=== PATIENT | female | born 1940 | race Caucasian/White ===

== ENCOUNTER 2017-01-10 14:25 | Day surgery (SDC) | payer MEDICARE, BC ==
--- NOTE | ~2017-01-10 | OP ---
Record Of Operation [facility] [address] [place]. [address] NAME: CAMELIA VARGAS : 42 STATUS : [facility]#: [id number] AGE: 76 ADM/REG DATE : 01/10/17 MR#: [id number] REPORT SERV DATE: 01/20/17 DICTATED BY: SIGRID SEO DATE: 01/20/17 REPORT STATUS : Draft TRANSCRIBED BY: MODRodrigo DATE: 01/20/17 DATE OF PROCEDURE: 01/10/2017 PREOPERATIVE DIAGNOSES: 1. 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 2. Left hallux valgus. 3. 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 4. Left 3rd severe hammertoe contracture. 5. Left 4th severe hammertoe contracture. 6. Left 5th hammertoe contracture. 7. Left elongated 2nd metatarsal. POSTOPERATIVE DIAGNOSES: 1. 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 2. Left hallux valgus. 3. 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 4. Left 3rd severe hammertoe contracture. 5. Left 4th severe hammertoe contracture. 6. Left 5th hammertoe contracture. 7. Left elongated 2nd metatarsal. PROCEDURES: 1. Left 1st metatarsophalangeal arthrodesis with internal fixation. 2. Left 2nd metatarsophalangeal joint extensor tenotomy and capsulotomy. 3. Left 3rd metatarsophalangeal joint extensor tenotomy and capsulotomy. 4. Left 4th metatarsophalangeal joint extensor tenotomy and capsulotomy. 5. Left 5th metatarsophalangeal joint extensor tenotomy and capsulotomy. 6. Left 2nd PIPJ arthrodesis with internal fixation. 7. Left 3rd PIPJ arthrodesis with internal fixation. 8. Left 4th PIPJ arthrodesis with internal fixation. 9. Left 5th PIPJ arthroplasty. 10.Left 2nd metatarsal Courtney osteotomy with internal fixation. SURGEON: Cj Seo, D.P.M. ANESTHESIA: General and local anesthetic. ESTIMATED BLOOD LOSS: Minimal. COMPLICATIONS: None. INJECTABLES: Approximately 40 mL of a 1:1 mixture of 1% Xylocaine plain and 0.5% Marcaine plain. MATERIALS: Include Arthrex headless hammertoe screw fixation, 1st metatarsophalangeal arthrodesis plate from Arthrex, 3-0 and 4-0 Vicryl, 4-0 nylon. Record Of Operation [facility] [address] [place]. [address] NAME: CAMELIA VARGAS : 42 STATUS : [facility]#: [id number] AGE: 76 ADM/REG DATE : 01/10/17 MR#: [id number] REPORT SERV DATE: 01/20/17 DICTATED BY: SIGRID SEO DATE: 01/20/17 REPORT STATUS : Draft TRANSCRIBED BY: FRANSICO DATE: 01/20/17 PROCEDURE IN DETAIL: Under mild sedation, the patient was brought to the operating room and placed on the operating table in supine position. Following general anesthesia, local anesthesia obtained about the patient's left foot. Left foot, ankle, and lower leg were scrubbed, prepped, and draped in usual aseptic manner. Attention was directed to the procedure. Procedure #1 is left 1st metatarsophalangeal joint arthrodesis with internal fixation. Attention was directed to the dorsal aspect of the patient's left 1st metatarsophalangeal joint where a linear incision was made medial and parallel to the extensor tendon involving the contour of the deformity of the left 1st metatarsophalangeal joint. The incision was deepened to subcutaneous tissue with care being taken to identify and retract all vital neurovascular structures. All bleeders were cauterized and ligated as necessary. Linear capsular incision was made medial and parallel to the extensor tendon involving the contour of the deformity of the 1st metatarsophalangeal joint. Capsular tissues were reflected medial and laterally exposing the 1st metatarsophalangeal joint. At this time, the head of the metatarsal and base of the proximal phalanx was reamed of all remaining cartilaginous tissue. It should be noted that soft bone was encountered. Subchondral plate was removed. Fenestration ensued with subchondral bleeding. The 1st metatarsal was placed in a rectus position as well as the great toe. Temporary plate fixation was placed to the dorsal aspect of the 1st metatarsophalangeal joint. Next, interfrag screw was placed across the metatarsophalangeal joint with excellent compression noted. Locking and nonlocking screw fixation was placed throughout the dorsal plating system. Excellent position was noted. Copious irrigation ensued. The capsular and deep fascia tissue reapproximated and coapted utilizing 3-0 Vicryl. Attention was directed to the next procedure. Next procedure is left 2nd metatarsophalangeal joint extensor tenotomy and capsulotomy. Attention was directed to the dorsal aspect of the 2nd metatarsophalangeal joint where a curvilinear incision was made overlying the 2nd metatarsophalangeal joint. Blunt dissection was continued down to the level of the extensor dhillon apparatus. Extensor dhillon release was performed. Z-lengthening of the extensor tendon and capsulotomy ensued. The dorsal contracture was noted to be reduced. Attention was directed to the next procedure. The next procedure is left 3rd metatarsophalangeal joint extensor tenotomy and capsulotomy. Attention was directed to the dorsal aspect of the 3rd metatarsophalangeal joint where a curvilinear incision was made overlying the 3rd metatarsophalangeal joint. Blunt dissection was continued down to the level of the extensor dhillon apparatus. Extensor dhillon release was performed. Z-lengthening of the extensor tendon and capsulotomy ensued. The dorsal contracture was noted to be reduced. Attention was directed to the next procedure. The next procedure is left 4th metatarsophalangeal joint extensor tenotomy and capsulotomy. Attention was directed to the dorsal aspect of the 4th metatarsophalangeal joint where a curvilinear incision was made overlying the 4th metatarsophalangeal joint. Blunt dissection was continued down to the level of the extensor dhillon apparatus. Extensor dhillon release was performed. Z-lengthening of the extensor tendon and capsulotomy ensued. The dorsal contracture was noted to be reduced. Attention was directed to the next procedure. Record Of Operation [facility] [address] [facility] [place]. [address] NAME: CAMELIA VARGAS : 42 STATUS : [facility] PAT#: [id number] AGE: 76 ADM/REG DATE : 01/10/17 MR#: [id number] REPORT SERV DATE: 01/20/17 DICTATED BY: SIGRID SEO DATE: 01/20/17 REPORT STATUS : Draft TRANSCRIBED BY: FRANSICO DATE: 01/20/17 The next procedure is left 5th second metatarsophalangeal joint tenotomy and capsulotomy. Attention was directed to the dorsal aspect of the 5th metatarsophalangeal joint where a curvilinear incision was made overlying the 5th metatarsophalangeal joint. Blunt dissection was continued down to the level of the extensor dhillon apparatus. Extensor dhillon release was performed. Z-lengthening of the extensor tendon and capsulotomy ensued. The dorsal contracture was noted to be reduced. Attention was directed to the next procedure. The next procedure is left 2nd PIPJ arthrodesis with internal fixation. Attention was directed to the dorsal aspect of the 2nd digit where the severe hammertoe contracture was appreciated. A 2 cm similar elliptical incision was made overlying the dorsal PIPJ. Ellipse of the skin was removed in toto. Transverse tenotomy and capsulotomy ensued to the dorsal PIPJ. The cartilaginous tissues resected from the head of the proximal phalanx to the base of the intermediate phalanx. K-wire was placed into the intermediate phalanx exiting percutaneously at the tip of the digit and was retrograded into the proximal phalanx. At this time, a headless compression screw from Arthrex was placed overlying the guidewire under fluoroscopy guidance. Excellent positioning and stabilization was noted. Excellent compression at the PIPJ was appreciated. Guidewire was removed. Attention was directed to the next procedure. The next procedure is left 3rd PIPJ arthrodesis with internal fixation. Attention was directed to the dorsal aspect of the 3rd digit where the severe hammertoe contracture was appreciated. A 2 cm similar elliptical incision was made overlying the dorsal PIPJ. Ellipse of the skin was removed in toto. Transverse tenotomy and capsulotomy ensued to the dorsal PIPJ. The cartilaginous tissues resected from the head of the proximal phalanx to the base of the intermediate phalanx. K-wire was placed into the intermediate phalanx exiting percutaneously at the tip of the digit and was retrograded into the proximal phalanx. At this time, a headless compression screw from Arthrex was placed overlying the guidewire under fluoroscopy guidance. Excellent positioning and stabilization was noted. Excellent compression at the PIPJ was appreciated. Guidewire was removed. Attention was directed to the next procedure. The next procedure is left 4th PIPJ arthrodesis with internal fixation. Attention was directed to the dorsal aspect of the 4th digit where the severe hammertoe contracture was appreciated. A 2 cm similar elliptical incision was made overlying the dorsal PIPJ. Ellipse of the skin was removed in toto. Transverse tenotomy and capsulotomy ensued to the dorsal PIPJ. The cartilaginous tissues resected from the head of the proximal phalanx to the base of the intermediate phalanx. K-wire was placed into the intermediate phalanx exiting percutaneously at the tip of the digit and was retrograded into the proximal phalanx. At this time, a headless compression screw from Arthrex was placed overlying the guidewire under fluoroscopy guidance. Excellent positioning and stabilization was noted. Excellent compression at the PIPJ was appreciated. Guidewire was removed. Attention was directed to the next procedure. The next procedure is left 5th PIPJ arthroplasty. Attention was directed to the fifth digit where the severe hammertoe contracture was visualized. A 1 cm semi-elliptical incision made along the dorsal aspect of the PIPJ contracture. Ellipse of the skin removed in toto. Transverse tenotomy and capsulotomy ensued. The head of the proximal phalanx was resected Record Of Operation [facility] [address] [facility] [place]. [address] NAME: CAMELIA VARGAS : 42 STATUS : [facility] PAT#: [id number] AGE: 76 ADM/REG DATE : 01/10/17 MR#: [id number] REPORT SERV DATE: 01/20/17 DICTATED BY: SIGRID SEO DATE: 01/20/17 REPORT STATUS : Draft TRANSCRIBED BY: FRANSICO DATE: 01/20/17 with a sagittal bone saw. Copious irrigation ensued. The extensor tendon reapproximated and coapted utilizing 4-0 Vicryl. Skin was reapproximated and coapted utilizing 4-0 nylon. Digits 2, 3, and 4 were also reapproximated and coapted with 4-0 Vicryl to the extensor tendon. The skin was reapproximated and coapted utilizing 4-0 nylon. Attention was directed to the last procedure. Last procedure is left second metatarsal Courtney osteotomy. At this time, attention was directed to the second metatarsal where the elongated metatarsal was present. At this time, a Courtney osteotomy was created from dorsal distal to proximal plantar parallel to the weightbearing surface. The metatarsal was then shortened approximately 2-3 mm and was fixated with a 2-0 cannulated screw from Arthrex. The dorsal lipping was resected and all rough edges smoothed as necessary. The extensor tendons to the metatarsophalangeal joints were reapproximated and coapted utilizing 4-0 Vicryl in an elongated length and position. Subcutaneous tissue reapproximated and coapted utilizing 4-0 Vicryl. Skin was reapproximated and coapted utilizing 4-0 nylon to each incision. A well-padded sterile dressing and well-padded posterior splint were applied. Upon release of the tourniquet capillary refill time was less than 3 seconds, digits 1 through 10 tested. The patient tolerated the procedure and anesthesia well and was transferred to recovery room with vital signs stable and vascular status intact to all toes. Following a period of postoperative monitoring, the patient will be discharged home with following written and oral postoperative instructions. 1. Keep dressings clean, dry, intact. Strict nonweightbearing at all times. Ice and elevate as directed. Take medications as prescribed, and to follow up with Dr. Seo in 7 to 14 days. SANDRA/FRANSICO Cj Seo D.P.M. / [id number] CC: Claude Waldron M.D.
[~2017-01-10 14:25] MED LIST: BENICAR40 PO; CARDCD240 PO; FEMARA PO; LOVAZA1 GM PO
[2017-01-10] MEDS ORDERED: GLUCPH PO (15:26)
[2017-01-10] MEDS ORDERED: HYDROCHLOROT12.5 MG (15:27)
[2017-01-10] MEDS ORDERED: ASAB PO (15:28)
[2017-01-10 16:22] LABS: BASOPHILS 0.8 %; BASOPHILS ABSOLUTE 0.04 10/3/uL (0.0-0.16); EOSINOPHILS ABSOLUTE 0.05 10/3/uL (0.0-0.53); HEMOGLOBIN 11.6 g/dL (12.0-16.0); LYMPHOCYTES ABSOLUTE 1.48 10/3/uL (0.67-4.30); MEAN CORPUS HGB CONC 33.1 g/dL (32.0-36.0); MEAN CORPUSCULAR HEMOGLOB 29.9 pg (26.0-34.0); MEAN PLATELET VOLUME 10.1 fL (9.2-13.0); MONOCYTES 8.3 %; MONOCYTES ABSOLUTE 0.41 10/3/uL (0.21-1.20); NEUTROPHILS 59.9 %; NEUTROPHILS ABSOLUTE 2.96 10/3/uL (2.02-8.40); RED CELL COUNT 3.88 10/6/uL (4.0-5.6); WHITE BLOOD CELLS 4.9 10/3/uL (4.5-10.5)
[2017-01-10 16:24] LABS: MANUAL DIFF NO %; MEAN CORPUSCULAR VOLUME 90.2 fL (80-100); PLATELET COUNT 288 10/3/uL (150-400)
== END 2017-01-10 21:26 | disposition home or self-care (01) ==
LOC: SDC 14:25
PROVIDERS: Anesthesiology; Podiatrist Foot & Ankle Surgery
PROC: 0SGN04Z Fusion of Left Metatarsal-Phalangeal Joint with Internal Fixation Device, Open Approach (ICD-10-PCS; principal; 2017-01-10 16:30)
DX: M20.12 Hallux valgus (acquired), left foot (principal); I10 Essential (primary) hypertension; M20.42 Other hammer toe(s) (acquired), left foot; Q66.21 Congenital metatarsus primus varus; M20.5X2 Other deformities of toe(s) (acquired), left foot; E11.9 Type 2 diabetes mellitus without complications; Z85.3 Personal history of malignant neoplasm of breast
CPT/HCPCS: 76000; 82962; 85025; C1713; C1769; J0690; J2250; J2370; J3010